=== PATIENT | male | born 2000 | race Native Hawaiian/Other Pacific Islander ===

== ENCOUNTER 2022-05-10 21:59 | Emergency (ER) | payer OTHER ==
[~2022-05-10] VITALS: Ht 177.8 cm; Wt 86.2 kg
[2022-05-10 22:00] VITALS: BP 125/70; TEMP 98
== END 2022-05-11 00:37 | disposition home or self-care (01) ==
LOC: ED 21:59
DX: S16.1XXA Strain of muscle, fascia and tendon at neck level, initial encounter (principal); S86.812A Strain of other muscle(s) and tendon(s) at lower leg level, left leg, initial encounter; S86.811A Strain of other muscle(s) and tendon(s) at lower leg level, right leg, initial encounter; S80.212A Abrasion, left knee, initial encounter; S80.211A Abrasion, right knee, initial encounter; V53.5XXA Driver of pick-up truck or van injured in collision with car, pick-up truck or van in traffic accident, initial encounter; Y92.89 Other specified places as the place of occurrence of the external cause
CPT/HCPCS: 99283; J1885